=== PATIENT | female | born 1970 | race Caucasian/White ===

== ENCOUNTER → 2017-07-29 | Outpatient (CLI) | payer SELFPAY ==
[~2017-07-29] MED LIST: CELEXA10 MG PO; CIPRO500 MG PO; CIPROFLOXACIN500 MG PO; KLONOPIN0.5 MG PO; TAMOXIFEN CITRA10 MG PO; VICODIN 5/500 505 MG PO
== END | disposition home or self-care (01) ==
LOC: MAMMO 07-22 09:00
DX: C50.919 Malignant neoplasm of unspecified site of unspecified female breast (principal); R92.8 Other abnormal and inconclusive findings on diagnostic imaging of breast

== ENCOUNTER → 2018-09-15 | Outpatient (CLI) | payer SELFPAY | END | disposition home or self-care (01) | LOC: MAMMO 09-08 08:20 | DX: R92.2 Inconclusive mammogram (principal); M54.9 Dorsalgia, unspecified; Z85.3 Personal history of malignant neoplasm of breast ==

== ENCOUNTER → 2019-07-04 | Outpatient (CLI) | payer OTHER ==
[2019-07-04 14:44] LABS: BASO % 0.4 % (0.0-1.0); EOS # 0.2 10*3/uL (0.0-0.4); EOS % 1.8 % (1.0-4.0); HEMATOCRIT 42.5 % (37.0-47.0); HEMOGLOBIN 14.4 g/dl (12.0-16.0); LYMPH # 1.8 10*3/uL (1.3-4.4); MEAN CELL VOLUME 95.3 fl (81.0-99.0); MEAN CORPUSCULAR HGB 32.3 pg (27.0-31.0); MEAN CORPUSCULAR HGB CONC 33.9 g/dl (33.0-37.0); MEAN PLATELET VOLUME 9.6 fl (9.6-12.3); MONO # 0.8 10*3/uL (0.1-1.0); MONO % 8.8 % (3.0-9.0); NEUT # 6.1 10*3/uL (2.3-7.9); NEUT % 68.7 % (47.0-73.0); PLATELET COUNT AUTOMATED 236 10*3/uL (130-400); RED BLOOD COUNT 4.46 10*6/uL (4.10-5.10); RED CELL DISTRI WIDTH 13.7 % (0-14.5); WHITE BLOOD COUNT 8.9 10*3/uL (4.8-10.8)
[2019-07-04 15:17] LABS: ALBUMIN 3.8 gm/dl (3.1-4.5); BUN 8 mg/dl (7-24); CHLORIDE 103 mmol/L (98-107); CREATININE 0.71 mg/dL (0.55-1.02); POTASSIUM 3.9 mmol/L (3.5-5.1); SODIUM 139 mmol/L (136-145)
[2019-07-04 15:30] LABS: ALKALINE PHOSPHATASE 85 U/L (45-117); SGOT/AST 15 IU/L (3-35); SGPT/ALT 17 U/L (12-78)
== END | disposition home or self-care (01) ==
LOC: LAB 14:15
PROVIDERS: Family Medicine
DX: L63.9 Alopecia areata, unspecified (principal); R53.81 Other malaise

== ENCOUNTER → 2019-11-29 | Outpatient (CLI) | payer OTHER | END | disposition home or self-care (01) | LOC: MAMMO 11-02 10:00 | DX: N64.89 Other specified disorders of breast (principal); Z03.89 Encounter for observation for other suspected diseases and conditions ruled out ==

== ENCOUNTER → 2021-12-26 | Outpatient (CLI) | payer OTHER | END | disposition home or self-care (01) | LOC: MAMMO 00:24 | PROVIDERS: ATTEND Family Medicine | DX: C50.912 Malignant neoplasm of unspecified site of left female breast (principal); Z80.3 Family history of malignant neoplasm of breast; R92.2 Inconclusive mammogram ==

== ENCOUNTER 2022-02-11 16:51 | Emergency (ER) | payer OTHER ==
[~2022-02-11] VITALS: Ht 160 cm; Wt 46.3 kg
[2022-02-11] MEDS ORDERED: CETIRIZINE HYDR10 MG PO (17:00)
[2022-02-11] MEDS ORDERED: GABAPENTIN600 MG PO (17:00)
[2022-02-11] MEDS ORDERED: HYDROCODONE-AC1 EAC2 PO (17:01)
[2022-02-11] MEDS ORDERED: METRONIDAZOLE500 M1 PO (17:37)
[2022-02-11] MEDS ORDERED: Vibra-Tab100 MG PO (17:37)
== END 2022-02-11 17:58 | disposition home or self-care (01) ==
LOC: ED 16:51
DX: S61.051A Open bite of right thumb without damage to nail, initial encounter (principal); Z88.0 Allergy status to penicillin; Z91.040 Latex allergy status; Z88.2 Allergy status to sulfonamides; Z79.899 Other long term (current) drug therapy; Z90.49 Acquired absence of other specified parts of digestive tract; W54.0XXA Bitten by dog, initial encounter; Y93.89 Activity, other specified; Y92.89 Other specified places as the place of occurrence of the external cause; Y99.8 Other external cause status

== ENCOUNTER 2022-11-20 19:25 | Emergency (ER) | payer OTHER ==
[~2022-11-20] VITALS: Ht 162.5 cm; Wt 43.1 kg
[~2022-11-20 19:25] MED LIST changes: +CETIRIZINE HYDR10 MG PO; +GABAPENTIN600 MG PO; +HYDROCODONE-AC1 EAC2 PO; +METRONIDAZOLE500 M1 PO; +Vibra-Tab100 MG PO
== END 2022-11-20 21:07 | disposition home or self-care (01) ==
LOC: ED 19:25
DX: B34.9 Viral infection, unspecified (principal); Z20.822 Contact with and (suspected) exposure to COVID-19; Z88.0 Allergy status to penicillin; Z91.040 Latex allergy status; Z88.2 Allergy status to sulfonamides; Z88.8 Allergy status to other drugs, medicaments and biological substances; Z90.49 Acquired absence of other specified parts of digestive tract; Z87.891 Personal history of nicotine dependence

== ENCOUNTER → 2023-12-18 | Outpatient (CLI) | payer OTHER | END | disposition home or self-care (01) | LOC: RAD 12-11 10:00 | PROVIDERS: ATTEND Family Medicine | DX: M85.88 Other specified disorders of bone density and structure, other site (principal); N95.0 Postmenopausal bleeding; C50.919 Malignant neoplasm of unspecified site of unspecified female breast; Z90.710 Acquired absence of both cervix and uterus ==

== ENCOUNTER → 2025-02-24 | Outpatient (CLI) | payer OTHER ==
[2025-02-24 14:34] LABS: BASO % 0.5 % (0.0-1.0); EOS # 0.1 10*3/uL (0.0-0.4); HEMATOCRIT 40.1 % (37.0-47.0); MEAN CELL VOLUME 94.1 fl (81.0-99.0); MEAN CORPUSCULAR HGB 31.7 pg (27.0-31.0); MEAN CORPUSCULAR HGB CONC 33.7 g/dl (33.0-37.0); MEAN PLATELET VOLUME 9.8 fl (9.6-12.3); MONO # 0.5 10*3/uL (0.1-1.0); MONO % 6.7 % (3.0-9.0); NEUT # 4.5 10*3/uL (2.3-7.9); NEUT % 61.6 % (47.0-73.0); PLATELET COUNT AUTOMATED 216 10*3/uL (130-400); RED BLOOD COUNT 4.26 10*6/uL (4.10-5.10); RED CELL DISTRI WIDTH 13.5 % (0-14.5); WHITE BLOOD COUNT 7.3 10*3/uL (4.8-10.8)
[2025-02-24 14:56] LABS: ALKALINE PHOSPHATASE 61 U/L (46-116); BUN 6 mg/dl (9-23); CHLORIDE 107 mmol/L (98-107); CHOLESTEROL 181 mg/dL (<200); LDL CHOLESTEROL 75 mg/dL (9-159); POTASSIUM 3.3 mmol/L (3.4-5.1); SGPT/ALT 14 U/L (5-49); TRIGLYCERIDES 130 mg/dl (<150); VITAMIN D, 25-HYDROXY 11.7 ng/mL (30-100)
== END | disposition home or self-care (01) ==
LOC: LAB 14:13
PROVIDERS: ATTEND Nurse Practitioner Primary Care
DX: Z13.220 Encounter for screening for lipoid disorders (principal); M85.80 Other specified disorders of bone density and structure, unspecified site; G62.9 Polyneuropathy, unspecified; Z72.0 Tobacco use; Z79.899 Other long term (current) drug therapy